=== PATIENT | male | born 1950 | race African-American/Black ===

== ENCOUNTER 2020-10-25 09:07 | Outpatient (CLI) | payer MEDICARE ==
[2020-10-25] MEDS ORDERED: Magnevist 469MG/ML 20 ML VIAL ONE (18:04)
== END 2020-10-25 09:08 | disposition home or self-care (01) ==
LOC: TBSIIMAG 09:07
PROVIDERS: ATTEND Radiology Radiation Oncology
DX: Z53.9 Procedure and treatment not carried out, unspecified reason (principal); C61 Malignant neoplasm of prostate
CPT/HCPCS: 72197; A9579